=== PATIENT | male | born 1980 | race Hispanic/Latino ===

== ENCOUNTER 2024-12-15 05:59 | Day surgery (SDC) | payer BC ==
--- NOTE | 2024-12-14 11:34 | EKG ---
[facility] Test Date: 2024-12-14 Test Time: 12:24:36 Pat Name: YESY HARRIS Department: [facility] Room: [facility] Gender: M Practice Clinician: [id number] : 1980 Requested By: WYATT BYRD Order Number: [id number] Reading MD: Kristopher Alfred Measurements Intervals [place] Rate: 53 P: 44 MS: 172 QRS: 51 QRSD: 111 T: 44 QT: 421 QTc: 398 Interpretive Statements Sinus rhythm ST elevation, consider anterior injury No previous ECG available for comparison Electronically Signed On 12-17-2024 17:31:22 [employer] APPLICATIONS DEVELOPER by Kristopher Alfred Please click the below link to view image of tracing.
[2024-12-14 12:32] LABS: BASOPHILS # (AUTO) 0.06 K/uL (0.00-0.20); EOSINOPHILS # (AUTO) 0.32 K/uL (0.00-0.70); EOSINOPHILS % (AUTO) 5.1 % (0.0-8.0); HEMATOCRIT 45.7 % (42-54); IMMATURE GRANULOCYTE ABSOLUTE 0.01 K/uL (0-1); LYMPHOCYTES # (AUTO) 2.1 K/uL (1.0-4.8); LYMPHOCYTES % (AUTO) 33.7 % (21.0-51.0); MEAN CORPUSCULAR HEMOGLOBIN 28.5 pg (27.0-33.0); MEAN CORPUSCULAR HGB CONC 32.8 g/dL (32.0-36.0); MEAN CORPUSCULAR VOLUME 86.7 fL (79-99); MONOCYTES # (AUTO) 0.5 K/uL (0.1-1.0); MONOCYTES % (AUTO) 7.5 % (3.0-13.0); NEUTROPHILS # (AUTO) 3.3 K/uL (1.8-7.7); NEUTROPHILS % (AUTO) 52.5 % (40.0-77.0); PLATELET COUNT (AUTO) 191 K/uL (130-400); RED BLOOD CELL COUNT(AUTO) 5.27 MIL/uL (4.50-6.20); RED CELL DISTRIBUTION WIDTH 13.1 % (11.0-15.5); WHITE BLOOD COUNT (AUTO) 6.3 K/uL (4.8-10.8)
[2024-12-14 12:48] LABS: INR <= 0.93 (0.85-1.15); PROTHROMBIN TIME 10.3 SEC (9.6-11.6)
[2024-12-14 12:49] LABS: PARTIAL THROMBOPLASTIN TIME 25.4 SEC (26.3-35.5)
[2024-12-14 12:51] LABS: ALBUMIN 3.8 g/dL (3.5-5.0); BILIRUBIN,TOTAL 0.6 mg/dL (0.2-1.0); CREATININE 1.2 mg/dL (0.5-1.3); POTASSIUM 3.7 mmol/L (3.5-5.1); TOTAL PROTEIN, SERUM 7.7 g/dL (6.0-8.3)
[2024-12-14 12:52] VITALS: BP 157/77; PULSE 59; RESP 18; TEMP 97.9
[2024-12-15] VITALS (13 sets, daily range): BP systolic 100–117; BP diastolic 54–65; PULSE 60–67; RESP 14–18; TEMP 97.6–98
[~2024-12-15] VITALS: Ht 182.9 cm; Wt 127.3 kg
[~2024-12-15 05:59] MED LIST: CHLO25TA3 PO; LISI20TA24 PO
[2024-12-15] MEDS ORDERED: BUPIvacaine/PF 0.25% 30ML VIAL IJ ONE (07:16)
[2024-12-15] MEDS ORDERED: LIDOCAINE 1%-EPI 1:100,000 20 ML VIAL ONE (07:16)
[2024-12-15] MEDS ORDERED: LIDOCAINE PF 100MG/5ML (2%) SYRINGE 5ML ONE (07:19)
[2024-12-15] MEDS ORDERED: rocuRONium bROMide 10MG/1ML 5ML VL ONE (07:20)
[2024-12-15] MEDS ORDERED: proPOFol 10 MG/ML 20ML VIAL IV ONE (07:20)
[2024-12-15] MEDS ORDERED: FENTanyl CITRate PF 50 MCG/1 ML 2ML VIAL ONE ×2 (07:20→09:03)
[2024-12-15] MEDS ORDERED: MIDAZOLAM HCL 1 MG/ML 2ML VIAL ONE (07:20)
[2024-12-15] MEDS ORDERED: ondanSETRON 4MG INJ ONE (07:21)
[2024-12-15] MEDS ORDERED: dexaMETHasone SOD PHOSPHATE 4 MG/ML 1ML VIAL ONE (07:21)
[2024-12-15] MEDS ORDERED: ketOROlac 30MG VIAL (30MG/ML) ONE (07:21)
[2024-12-15] MEDS: ceFAZolin SODIUM 2 GM VIAL ONE (07:49)
[2024-12-15] MEDS: LACTATED RINGERS 1000ML IV SCH (07:50)
[2024-12-15] MEDS: ceFAZolin SODIUM 2 GM VIAL IVPB ONE (08:28)
[2024-12-15] MEDS ORDERED: phenylEPHRINE HCL 10 MG/ML 1ML VIAL IV ONE (08:47)
[2024-12-15] MEDS ORDERED: LIDOCAINE HCL 2% PF 20 ML JEL DISP.SYRIN MM ONE (09:04)
[2024-12-15] MEDS: LIDOCAINE 1%-EPI 1:100,000 20 ML VIAL IJ ONE (09:08)
--- NOTE | 2024-12-15 09:37 | OP ---
Operative Note: DATE OF PROCEDURE: 12/15/24 SURGEON: WYATT BYRD MD STUD DAIRY [employer]LE FARMER: [None] ANESTHESIA: [GETA] ANESTHESIOLOGIST/ATG ARCHITECT: [] PREOPERATIVE DIAGNOSIS: [Anal Fistula. Screening for Colorectal Cancer] POSTOPERATIVE DIAGNOSIS: [Anal fistula. Diverticulosis of the sigmoid colon. Sigmoid colon polyp x 1. Rectal polyp x 2.] SYNOPSIS: [Diverticulosis of sigmoid colon. Posterior midline anal fistula.] PROCEDURE: [Complex Anal fistulotomy. Colonoscopy with biopsy.] ESTIMATED BLOOD LOSS: [minimal.] INDICATIONS: [The patient is a very pleasant 44 year old male who presents with an anal fistula and screening for colorectal cancer. He was offered operative management. CRAB was d/w patient and family in detail and they would like to proceed after all questions were answered to their satisfaction.] * DESCRIPTION OF PROCEDURE: [The patient was brought to the operating theater and placed in the dorsal lithotomy position after appropriate GETA was administered and IV antibiotics given. The perineum was prepped and drapped sterile. A colonoscope was inserted and passed to the cecum without diffi culty noting an excellent prep of the colon. The TI was intubated and the colonoscope was withdrawn over 8 minutes. The patient was noted to have sigmoid diverticulosis, a sigmoid colon polyp and two rectal polyps. All polyps were less than 5 mm and were removed completely with cold biopsy forceps. * * The attention was drawn to the anus where an anoscope was inserted. An moving picture producer al opening was noted to a fistula in the posterior midline anal margin. A fistula probe was inserted and passed to the internal opening in the posterior midline without difficulty. Only 5% muscle was involved so a complex anal fistulotomy was performed with cautery. The internal opening of the fistula tract was cauterized. The granulation tissue was removed with a currete. Exc ellent hemostasis was achieved. Local anesthetic was injected. There were no complications and the instrument, sponge and needle count were reported as correct x 2 by nursing staff. ] WYATT BYRD MD Dec 15, 2024 09:37
--- NOTE | 2024-12-15 10:35 | NUR ---
FULL AND COMPLETE DISCHARGE INSTRUCTIONS GIVEN TO PATIENT AND FAMILY BOTH VERBALLY AND IN WRITING. VOICED UNDERSTANDING TO SURGICAL PROCEDURE FOLLOW UP EXPECTIONS AND PRECAUTIONS.GROIN SITES CLEAN, DRY WITH NO SIGN OF HEMATOMA, BRUISING OR BLEEDING. PEDAL PULSES INTACT. PATIENT DENIES C/O PAIN OR NEED. PIV REMOVED WITH CATHETER TIP INTACT. W/C TO POV WITH FAMILY TO HOME SCHEDULED.
== END 2024-12-15 10:35 | disposition home or self-care (01) ==
LOC: DAH 05:59
PROVIDERS: ATTEND Surgery
DX: K60.321 Anal fistula, complex, initial (principal); K92.1 Melena; I10 Essential (primary) hypertension; K63.5 Polyp of colon; K62.1 Rectal polyp; K64.9 Unspecified hemorrhoids; F10.90 Alcohol use, unspecified, uncomplicated; K57.30 Diverticulosis of large intestine without perforation or abscess without bleeding; E66.9 Obesity, unspecified; Z68.36 Body mass index [BMI] 36.0-36.9, adult; Z79.899 Other long term (current) drug therapy
CPT/HCPCS: 80053; 85025; 85610; 85730; 84153; 36415; 93005; 45380; 46280; 88304; 88305; J1100; A4223 ×2; A4600; A6260; A4663; J7120; A4649 ×2; A4344; J3010 ×2; J3490 ×3; J0665 ×2; J2003; J2250; J2704; J2405; J1885; J2371; J0690 ×2; A4930; A4215; A4213; A4222; A4221; A4216; 45330